=== PATIENT | female | born 2000 | race Caucasian/White ===

== ENCOUNTER 2021-07-17 10:28 | Outpatient (CLI) | payer OTHER ==
[2021-07-17 18:14] LABS: SARS-CoV-2 PCR by NAA Not Detected (NotDetected)
== END 2021-07-17 10:29 | disposition home or self-care (01) ==
LOC: CSHLAB 10:28
PROVIDERS: ATTEND Family Medicine
DX: Z01.812 Encounter for preprocedural laboratory examination (principal); Z20.822 Contact with and (suspected) exposure to COVID-19
CPT/HCPCS: U0003; U0005

== ENCOUNTER 2021-07-22 08:14 | Inpatient (IN) | payer OTHER ==
[2021-07-23] MEDS ORDERED: Acetaminophen 500 MG TAB PO PRN (05:39)
[2021-07-23] MEDS ORDERED: Ibuprofen 800 MG TAB PO PRN (05:39)
[2021-07-23] MEDS ORDERED: Promethazine HCl 25 MG/ML VIAL IM PRN ×3 (05:39→17:27)
[2021-07-23] MEDS ORDERED: Methylergonovine 0.2 MG/ML VIAL IM PRN (05:39)
[2021-07-23] MEDS ORDERED: Lidocaine 1% (PF) 30 ML VIAL SC PRN (05:39)
[2021-07-23] MEDS ORDERED: Carboprost 250 MCG/ML AMP IM PRN (05:39)
[2021-07-23] MEDS ORDERED: Penicillin G Potassium 5 MILL.UNITS in Sodium Chloride 0.9% 100 ML IVPB SCH (05:39)
[2021-07-23] MEDS ORDERED: NS w/ Oxytocin 30 units 500 ML IVPB SCH (05:39)
[2021-07-23] MEDS ORDERED: NS w/ Oxytocin 30 units 500 ML IV SCH ×3 (05:39→17:30)
[2021-07-23] MEDS ORDERED: Misoprostol 200 MCG TAB PR PRN (05:39)
[2021-07-23] MEDS ORDERED: Diphenoxylate HCl/Atropine Tablet PO PRN (05:39)
[2021-07-23] MEDS ORDERED: hydrALAZINE 20 MG/ML VIAL SLOW IVP PRN ×2 (05:39→17:27)
[2021-07-23] MEDS ORDERED: Butorphanol Tartrate 1 MG/ML VIAL SLOW IVP PRN (05:39)
[2021-07-23] MEDS ORDERED: Ondansetron PF 4 MG/2 ML Vial IVP PRN ×3 (05:39→17:27)
[2021-07-23] MEDS ORDERED: HYDROcodone/Acetaminophen 5/325 mg Tablet PO PRN ×3 (05:39→17:27)
[2021-07-23] MEDS: Misoprostol 100 MCG TAB VAG SCH ×2 (06:27→12:31)
[2021-07-23 06:46] VITALS: BMI 29.4
[2021-07-23 06:48] LABS: Hemoglobin 11.1 g/dL (12.0-15.5); Mean Corpuscular HGB CONC 32.8 g/dL (32.0-36.0); Mean Corpuscular Hemoglobin 28.8 pg (27.0-33.0); Mean Corpuscular Volume 87.6 fl (81.6-98.3); Platelet Count 311 10x3/uL (150-450); RBC Distribution Width 14.5 % (11.5-14.5); Red Blood Cell (RBC) Count 3.86 10x6/uL (3.90-5.03); White Blood Cell (WBC) Count 14.6 10x3/uL (3.5-10.5)
[2021-07-23 07:21] LABS: Syphilis Antibody Nonreactive (Nonreactive); Syphilis Antibody Index 0.05 S/CO (<1.00 Non-Reactive)
[2021-07-23 07:22] LABS: Hep B Surf Ag Non-Reactive S/CO (NonReactive)
[2021-07-23 07:46] LABS: HBSAg Index 0.18 S/CO (0-0.99)
[2021-07-23] MEDS: Penicillin G 2.5 MILL.units 2.5 MILL.UNITS in Premix Bag 1 BAG IVPB SCH ×2 (10:38→14:21)
[2021-07-23] MEDS: Lactated Ringer's 1,000 ML IV SCH ×2 (10:38→11:58)
[2021-07-23] MEDS ORDERED: Fentanyl 2 mcg/Bup 0.1% Cadd 100 ML ONE (10:56)
[2021-07-23] MEDS ORDERED: diphenhydrAMINE 50 MG/ML VIAL IVP PRN (11:24)
[2021-07-23] MEDS ORDERED: Hydrocerin (Eucerin) Cream 120 gm Jar TOP PRN (11:24)
[2021-07-23] MEDS ORDERED: ePHEDrine Sulfate 50 MG/10 ML VIAL SLOW IVP PRN (11:24)
[2021-07-23] MEDS ORDERED: Lactated Ringer's 500 ML IV PRN (11:24)
[2021-07-23] MEDS ORDERED: Naloxone HCl 0.4 mg/ml Vial IVP PRN ×2 (11:24)
[2021-07-23] MEDS ORDERED: Acetaminophen 325 MG TAB PO PRN (11:24)
[2021-07-23] MEDS ORDERED: Communication Order-Pharmacy FS SCH (11:30)
[2021-07-23] MEDS ORDERED: Fentanyl 2 mcg/Bupivacaine 0.1% Cassette 100 ML EPIDURAL SCH (11:30)
[2021-07-23] MEDS ORDERED: Bisacodyl 10 MG SUPP PR PRN (17:27)
[2021-07-23] MEDS ORDERED: diphenhydrAMINE 25 MG CAP PO PRN (17:27)
[2021-07-23] MEDS ORDERED: Milk Of Magnesia 30 ML UDCUP PO PRN (17:27)
[2021-07-23] MEDS ORDERED: Benzocaine-Menthol 82.5 ML CAN TOP PRN (17:27)
[2021-07-23] MEDS: Docusate Calcium (SURFAK) 240 MG CAP PO SCH (21:03)
[2021-07-23] MEDS: Ibuprofen 800 MG TAB PO SCH (21:04)
[2021-07-24] MEDS: Ibuprofen 800 MG TAB PO SCH ×2 (04:50→14:40)
[2021-07-24] MEDS: Ferrous Sulfate 325 MG TAB PO SCH ×2 (08:16→17:01)
[2021-07-24] MEDS ORDERED: Prenatal Vitamin 1 TAB PO SCH (09:00)
[2021-07-24] MEDS: Docusate Calcium (SURFAK) 240 MG CAP PO SCH (09:11)
[2021-07-24] MEDS: Misoprostol 100 MCG TAB VAG SCH (10:01)
[2021-07-24] MEDS ORDERED: Boostrix 0.5 ML (Tdap) VIAL IM ONE (17:27)
[2021-07-24 17:42] VITALS: BP 107/57; TEMP 99
== END 2021-07-24 17:55 | disposition home or self-care (01) | DRG 807 ==
LOC: CSHLD 07-23 04:49 → CSHPP 07-23 19:40
PROVIDERS: ADMIT Family Medicine; ATTEND Family Medicine
PROC: 10E0XZZ Delivery of Products of Conception, External Approach (ICD-10-PCS; principal; 2021-07-23)
PROC: 10907ZC Drainage of Amniotic Fluid, Therapeutic from Products of Conception, Via Natural or Artificial Opening (ICD-10-PCS; 2021-07-23)
PROC: 3E033VJ Introduction of Other Hormone into Peripheral Vein, Percutaneous Approach (ICD-10-PCS; 2021-07-23)
PROC: 3E0P7VZ Introduction of Hormone into Female Reproductive, Via Natural or Artificial Opening (ICD-10-PCS; 2021-07-23)
PROC: 0HQ9XZZ Repair Perineum Skin, External Approach (ICD-10-PCS; 2021-07-23)
PROC: 0UQMXZZ Repair Vulva, External Approach (ICD-10-PCS; 2021-07-23)
DX: O99.824 Streptococcus B carrier state complicating childbirth (principal); Z37.0 Single live birth; Z20.822 Contact with and (suspected) exposure to COVID-19; Z3A.39 39 weeks gestation of pregnancy; O70.0 First degree perineal laceration during delivery; O69.81X0 Labor and delivery complicated by cord around neck, without compression, not applicable or unspecified
CPT/HCPCS: 36415; 51702; 85027; 86780; 86850; 86900; 86901; 87340; J2540; J2590; J3490; J7120

== ENCOUNTER 2022-03-21 16:50 | Emergency (ER) | payer OTHER ==
[2022-03-21] MEDS ORDERED: Morphine 2 MG/ML VIAL ONE (18:50)
== END 2022-03-21 19:02 | disposition home or self-care (01) ==
LOC: CSHERS 16:50
DX: O20.0 Threatened abortion (principal); F17.210 Nicotine dependence, cigarettes, uncomplicated; Z3A.08 8 weeks gestation of pregnancy
CPT/HCPCS: 76856; 96372; J2270